=== PATIENT | female | born 1965 ===

== ENCOUNTER 2018-08-17 17:25 | Emergency (ER) | payer MEDICAID ==
[2018-08-17 17:25] VITALS: BMI 24.3
[2018-08-17 17:31] VITALS: BP 146/88; PULSE 68; TEMP 97.8; O2SAT 100
--- NOTE | 2018-08-17 18:02 | C.PDOC ---
History Of Present Illness 53 yo female come in for evaluation of Right hip,Right groin pain developed for past 4 days. Pt reports, pain is localized, worse with movement. Pt admits, previous hx of lower back problem, chr. lower back pain. Pt denies known direct trauma or injury, fever, chills, sore throat, CP, SOB, abd. pain, N/V/D, UTI sx, saddle anesthesia, incontinence, denies weakness, sensory or vascular deficits to B/L LES. Ambulate to ED. Time Seen by Provider: 08/17/18 17:36 Chief Complaint (Nursing): Groin Pain History Per: Patient Past Medical History Reviewed: Historical Data, Nursing Documentation, Vital Signs Vital Signs: Last Vital Signs Temp 97.8 F 08/17/18 17:30 Pulse 68 08/17/18 17:30 Resp 16 08/17/18 17:30 BP 146/88 08/17/18 17:30 Pulse Ox 100 08/17/18 17:30 - Medical History PMH: Anxiety, HTN, Malignancy (Breast (on Tamoxifen)) Denies: Chronic Kidney Disease Surgical History: Cholecystectomy (10 yrs ago) - [facility] Procedures ARTHROCENTESIS (10/30/14) EXCISE AXILLARY NODE (07/14/14) LYMPHATIC DIAG PROC NEC (07/14/14) PERCUTAN NEEDLE BIOPSY OF BREAST (06/11/14) SUBTOTAL MASTECTOMY (07/23/14) Family History: States: Unknown Family Hx - Social History Hx Tobacco Use: No Hx Alcohol Use: Yes Hx Substance Use: Yes - Immunization History Hx Tetanus Toxoid Vaccination: No Hx Influenza Vaccination: No Hx Pneumococcal Vaccination: No Review Of Systems Except As Marked, All Systems Reviewed And Found Negative. Constitutional: Negative for: Fever, Chills ENT: Negative for: Throat Pain Cardiovascular: Negative for: Chest Pain, Palpitations Respiratory: Negative for: Cough, Shortness of Breath, Wheezing Gastrointestinal: Negative for: Nausea, Vomiting, Abdominal Pain, Diarrhea Genitourinary: Negative for: Dysuria, Incontinence Musculoskeletal: Positive for: Back Pain, Leg Pain. Negative for: Neck Pain Skin: Negative for: Rash, Bruising Neurological: Negative for: Weakness, Numbness Physical Exam - Physical Exam Appears: Well, Non-toxic, No Acute Distress Skin: Normal Color, Warm, Dry, No Rash Head: Normacephalic Eye(s): bilateral: PERRL Throat: No Erythema Neck: Supple Cardiovascular: Rhythm Regular, No Murmur, No JVD Respiratory: No Decreased Breath Sounds, No Accessory Muscle Use, No Stridor, No Wheezing Gastrointestinal/Abdominal: Soft, No Tenderness, No Distention, No Guarding Back: No CVA Tenderness, No Vertebral Tenderness, No Paraspinal Tenderness Extremity: Normal ROM (mild discomfort to Right hip flexion/extension. No neurovascular deficist distally.), Tenderness (over Right hip area), No Calf Tenderness (B/L), No Deformity, No Swelling, Other (Right groin area over groin ligament) Extremity: Bilateral: Atraumatic Pulses: Left Femoral: Normal, Right Femoral: Normal, Left Dorsalis Pedis: Normal, Right Dorsalis Pedis: Normal DTR: Knee (R): 2+, Knee (L): 2+ Neurological/Psych: Oriented x3, Normal Speech, Normal Motor, Normal Sensation, Normal Reflexes ED Course And Treatment - Laboratory Results Urine POC: Negative O2 Sat by Pulse Oximetry: 100 Pulse Ox Interpretation: Normal - Other Rad Right hip with pelvis X-Ray: Interpreted by Me, Viewed By Me Interpretation: (-) acute fx or dislocation Progress Note: On re-eval, pt is afebrile, hemodynamicaly stable. Non-toxic. Ambulatory in ED with stable gait. ENT: dariela acute findings. neck: Supple, (-) JVD. Lungs: CTA B/L, BS equal B/L. CVS: (+)S1S2, reg. Abd: benign. Back: (-) CVA tenderness. Neuorlogicaly intact. UA review- normal study, pt is currently on menstrual. Imagings review - normal study Pt has clinical findings c/w Right groin strain, r/o lumbar radiculopathy. Pt advised. ref. to F/u with PMD in2 -3 days for re-evaluation. return if any new changes. Disposition Counseled Patient/Family Regarding: Studies Performed, Diagnosis, Need For Followup, Rx Given - Disposition Referrals: Federico Soriano MD [Medical Doctor] - Disposition: HOME/ ROUTINE Disposition Time: 18:26 Condition: STABLE Additional Instructions: LIght duty Take pain medication as prescribed Follow up with PMD in 2-3 days for re-evaluation. Return to ED if any worsening or new changes. Prescriptions: Methocarbamol [Robaxin] 500 mg PO TID #14 tab traMADol [Ultram] 50 mg PO TID #7 tab Instructions: Groin Strain, Radiculopathy Forms: [facility] (Slovenian) Print Language: KAZAKH - Clinical Impression Clinical Impression: Groin strain, Lumbar radiculopathy
[2018-08-17 18:40] LABS: SQUAMOUS EPITHIAL 4 /hpf (0-5); URINE BACTERIA RARE (<OCC); URINE BILIRUBIN NEGATIVE (NEGATIVE); URINE BLOOD 2+ (NEGATIVE); URINE CLARITY Hazy (Clear); URINE COLOR Amber (YELLOW); URINE GLUCOSE (UA) NORMAL (Normal); URINE HYALINE CAST 0-2 /lpf (0-2); URINE LEUKOCYTE ESTERASE NEG Leu/uL (Negative); URINE PROTEIN 1+ mg/dL (NEGATIVE); URINE UROBILINOGEN NORMAL mg/dL (0.2-1.0)
[2018-08-17 19:20] VITALS: RESP 20
--- NOTE | 2018-08-18 09:56 | RAD ---
Date of service: 08/17/2018 PROCEDURE: RIGHT HIP WITH PELVIS RADIOGRAPHS HISTORY: pain COMPARISON: None available. TECHNIQUE: Frontal views of the pelvis including right hip been submitted with single frog-leg lateral view right hip. FINDINGS: No acute fracture dislocation right hip joint. Pelvic ring is intact including iliac bones, the sacrum and bilateral pubic pubic bones. No destructive bony lesion appreciated. Degenerative cortical sclerosis appreciated at the right hip joint which is symmetric with the left. Mild bilateral degenerative changes at the bilateral sacroiliac joints is also identified. Pubic symphysis appears intact as well as the remaining pubic bones bilaterally. Local soft tissues appear unremarkable. IMPRESSION: 1. No acute fracture or dislocation right hip joint or the pelvic ring. 2. Moderate degenerative changes bilateral hip joints, mild at the bilateral sacroiliac joints.
== END 2018-08-17 19:20 | disposition home or self-care (01) ==
LOC: C.ER 17:25
DX: M54.16 Radiculopathy, lumbar region (principal); S39.011A Strain of muscle, fascia and tendon of abdomen, initial encounter; X58.XXXA Exposure to other specified factors, initial encounter; Y92.9 Unspecified place or not applicable

== ENCOUNTER 2019-02-06 09:32 | Outpatient (CLI) | payer MEDICAID | END 2019-02-06 09:33 | disposition home or self-care (01) | LOC: C.USIC 09:32 | DX: C50.919 Malignant neoplasm of unspecified site of unspecified female breast (principal) ==